=== PATIENT | male | born 1985 | race Caucasian/White ===

== ENCOUNTER 2017-02-10 01:00 | Inpatient (IN) | payer SELFPAY ==
--- NOTE | ~2017-02-10 | DS ---
Unit #: [id number] #: [id number] Patient: LAURI DAVALOS [id number] [facility] [address] [place] [address] [id number] MR#: [id number] NAME: LAURI DAVALOS. ROOM: [facility] Age: 31 Sex: M Admission Date: 02/10/2017 : 1985 Discharge Date: 02/10/2017 Attending Physician: Esteban Carrillo M.D. Primary Care Physician: Primary Care Physician No DISCHARGE SUMMARY REASON FOR ADMISSION Paranoia, cannabis abuse. DIAGNOSTIC STUDIES LABORATORY RESULTS: Unremarkable. HOSPITAL COURSE The patient was admitted to inpatient unit on 02/10/2017 and discharged on 02/10/2017. The patient was cooperative, but reported that he would like to follow up on the outpatient basis. The patient was able to contract for safety. Denied any suicidal or homicidal ideation, currently not holdable. Subsequently, the patient was discharged as the patient was not having any command hallucination or any suicidal or homicidal ideation. DISCHARGE MEDICATIONS None. DISCHARGE DIAGNOSES Psychiatric: Psychosis, not otherwise specified, F29.0; mood disorder, not otherwise specified, F32.9; cannabis abuse, moderate, F12.20. Secondary diagnosis: Deferred. Medical diagnosis: None. Stressors: Psychosocial stressors. DISCHARGE INSTRUCTIONS The patient to follow up in outpatient clinic as per medical social worker. CONDITION ON DISCHARGE The patient was pleasant and cooperative. PROGNOSIS Guarded. DIET AND ACTIVITY As tolerated. The patient was discharged AMA. Dictated by... Esteban Carrillo M.D. Unit #: [id number] #: [id number] Patient: LAURI DAVALOS SZC/modl TD: 02/10/2017 23:20 JOB #: [id number] DISCHARGE SUMMARY Page 1 of 1 X Esteban Carrillo MD X DISCHARGE SUMMARY
--- NOTE | ~2017-02-10 | HP ---
Unit #: [id number] #: [id number] Patient: ABRAN DAVALOS [id number] [place] [address] [id number] MR#: [id number] NAME: ABRAN DAVALOS ROOM: [facility] Age: 31 Sex: M Admission Date: 02/10/2017 : 1985 Attending Physician: Esteban Carrillo M.D. Admitting Physician: Esteban Carrillo M.D. Primary Care Physician: Primary Care Physician No HISTORY AND PHYSICAL Abran is a 31 year old, who was admitted and discharged within the first twenty-four hours. He was not seen for a history and physical. Dictated by... Maria Teresa Hall P.A.-C. for Brayden Salinas/lukas TD: 02/11/2017 12:07 JOB #: [id number] HISTORY AND PHYSICAL Page 1 of 1 X Maria Teresa Hall HISTORY AND PHYSICAL
--- NOTE | ~2017-02-10 | PA ---
Unit #: [id number] #: [id number] Patient: ABRAN JAMES [id number] [place] [address] [id number] MR#: [id number] NAME: ABRAN JAMES. ROOM: [facility] Age: 31 Sex: M Admission Date: 02/10/2017 : 1985 Date of Assessment: 02/10/2017 Attending Physician: Esteban Carrillo M.D. Admitting Physician: Esteban Carrillo M.D. Primary Care Physician: Primary Care Physician No PSYCHIATRIC ASSESSMENT INFORMANTS The patient's reliability, fair; chart reliability, good. CHIEF COMPLAINT Depression. HISTORY OF PRESENT ILLNESS Mr. Abran James is a 31-year-old male, admitted with the above-mentioned complaint. The patient was released from [facility] recently, history of inpatient treatment in 2011 at [facility] for depression and anger. The patient has a good support from mother, son, and daughter. The patient presented with paranoid delusion, increased anxiety, reported having suicidal ideation. The patient reported altercation with the police on 02/09/2017. The patient reported paranoid delusions with auditory hallucination. The patient reported grief and loss over mother's health condition. The patient denied any homicidal ideation. The patient reported current use of marijuana use, last use on 02/10/2017. The patient needing inpatient admission at this time for psychiatric stabilization. PAST PSYCHIATRIC HISTORY Remarkable for history of previous treatment as mentioned above. FAMILY HISTORY AND SOCIAL HISTORY The patient has a good support system. No history of abuse. MEDICAL HISTORY Unremarkable for any chronic medical condition. Musculoskeletal; muscle strength and tone, no atrophy or abnormal movement. Gait normal. MEDICATION HISTORY None. ALLERGIES No known drug allergies. SUBSTANCE ABUSE HISTORY The patient reported tobacco use, age of onset 15; marijuana, age of onset 15; LSD, age of onset 27; benzodiazepine, age of onset 18. The patient reported history of blackout, but no history of any HIV, hepatitis, withdrawal symptom, or IV drug use. REVIEW OF SYSTEMS Unit #: [id number] #: [id number] Patient: ABRAN JAMES HEENT: Eyes, clear. Ears, nose, mouth, and throat; clear. CARDIOVASCULAR: Unremarkable. RESPIRATORY: Unremarkable. GI: Unremarkable. : Unremarkable. SKIN: Unremarkable. LYMPH NODE: Unremarkable. NEUROLOGIC: Unremarkable. ENDOCRINE: Unremarkable. HEMATOLOGIC: Unremarkable. ALLERGIC/IMMUNOLOGIC: Unremarkable. MUSCULOSKELETAL: Muscle strength and tone, no atrophy or abnormal movement. Gait normal. MENTAL STATUS EXAMINATION CONSTITUTIONAL: Measurement of vital signs; temperature 98.4, pulse 85, respirations 17, blood pressure 112/89. GENERAL APPEARANCE: The patient dressed casually. No facial deformity noted. MUSCULOSKELETAL: Please see above. PSYCHIATRIC EXAMINATION Description of speech; regular rate, normal volume, normal articulation. Description of thought process, goal directed. Description of association, intact. Description of abnormal psychotic thinking; the patient was guarded and paranoid, but denied any suicidal or homicidal ideation. Description of the patient's judgment; concerning everyday activity, poor. Social situation, poor. Concerning psychiatric condition, poor. Complete mental status examination; oriented in time, place, and person. Recent and remote memory, fair. Attention span and concentration, fair. Language, able to name object and repeat phrases. Fund of knowledge, aware of current event and passive vocabulary intact. Mood and affect, sad and dysphoric. Insight and judgment, fair to poor. ASSETS AND LIABILITIES Assets; the patient articulate, able to take care of his ADL. Liability; history of substance abuse. ADMITTING DIAGNOSES Psychiatric: Psychosis, not otherwise specified, F29.0; mood disorder, not otherwise specified, F32.9; cannabis abuse, severe, F12.20. Secondary diagnosis: Deferred. Medical diagnosis: None. Stressors: Psychosocial stressors. PSYCHIATRIC PLAN AND TREATMENT GOAL 1. Advised to admit the patient on the inpatient unit. Provide safe, supportive, and structured environment. 2. Ordered labs; CBC, CMP, UA, and UDS. 3. Plan to consider medication such as Zyprexa for psychotic symptom, possibly drug induced psychosis. The patient to attend all the programing on the inpatient unit. Treatment goal to attain euthymic mood, gain insight into his problem, and learn coping skills. Unit #: [id number] #: [id number] Patient: ABRAN JAMES DISCHARGE PLAN Plan to stabilize the patient and consider followup in outpatient program. ESTIMATED LENGTH OF STAY 2 to 4 days. Dictated by... Esteban Carrillo M.D. DANTE/lissa TD: 02/11/2017 03:45 JOB #: [id number] PSYCHIATRIC ASSESSMENT Page 1 of 1 X Esteban Carrillo MD PSYCHIATRIC ASSESSMENT
[~2017-02-10 01:00] MED LIST: AMOXIL875 MG PO; CORTISPORIN-TC10 ML OT; ERYTHROMYCIN O3.5 GM OD; FLEXERIL10 MG; FLEXERIL10 MG PO; IBUPROFEN800 MG PO; NAPROXEN PO; NO MEDICATIONS; PHENERGAN DM1 ML PO; VOLTAREN75 MG PO
[2017-02-10 09:34] LABS: BASOPHIL% 0.4 % (0-2.5); EOSINOPHIL# 0.3 X10e3 (0-0.7); HEMATOCRIT 43.7 % (38.0-50.0); HEMOGLOBIN 14.5 gm/dL (13.0-16.0); LYMPHOCYTE# 2.5 X10e3 (1.0-3.5); LYMPHOCYTE% 27.1 % (17.0-45.0); MEAN CELL VOLUME 87.9 FL (83-96); MEAN CORPUSCULAR HEMOGLOBIN 29.1 PG (28-34); MEAN CORPUSCULAR HGB CONC 33.1 g/dL (30-36); MEAN PLATELET VOLUME 9.2 FL (6.5-11.5); MONOCYTE# 0.8 X10e3 (0-1.0); MONOCYTE% 9.1 % (3.0-12.0); NEUTROPHIL# 5.5 X10e3 (1.5-7.1); NEUTROPHIL% 60.4 % (40-75); PLATELET COUNT 214 X10e3 (140-420); RED BLOOD COUNT 4.97 X10e (3.90-5.60); RED CELL DISTRIBUTION WIDTH 13.6 % (11.0-15.5); WHITE BLOOD COUNT 9.1 X10e3 (4.0-10.5)
[2017-02-10 09:48] LABS: DIFF IND NO
[2017-02-10 10:13] LABS: ALBUMIN SERUM 3.9 g/dL (3.5-5.0); BILIRUBIN,TOTAL 0.9 mg/dL (0.2-2.0); CALCIUM SERUM 9.4 mg/dL (8.4-10.2); GLOM FILT RATE Estimated 101.3 mL/min (>60); POTASSIUM 4.2 mmol/L (3.5-5.1); PROTEIN TOTAL SERUM 6.9 g/dL (6.0-8.3)
== END 2017-02-10 15:24 | disposition home or self-care (01) | DRG 885 ==
LOC: P2S 03:31
PROVIDERS: Psychiatry & Neurology Psychiatry
DX: F29 Unspecified psychosis not due to a substance or known physiological condition (principal); F39 Unspecified mood [affective] disorder; F12.20 Cannabis dependence, uncomplicated
CPT/HCPCS: 80053; 85025

== ENCOUNTER 2017-05-15 19:57 | Emergency (ER) | payer SELFPAY ==
[~2017-05-15] VITALS: Ht 182.9 cm; Wt 81.6 kg
== END 2017-05-15 20:37 | disposition home or self-care (01) ==
LOC: SED 19:57
DX: R59.1 Generalized enlarged lymph nodes (principal); F17.210 Nicotine dependence, cigarettes, uncomplicated
CPT/HCPCS: 99282